=== PATIENT | female | born 1980 | race Caucasian/White ===

== ENCOUNTER 2017-05-25 12:20 | Emergency (ER) | payer OTHER ==
[~2017-05-25] VITALS: Ht 154.9 cm; Wt 61.2 kg
--- NOTE | ~2017-05-25 | US67 ---
[facility] A Service of [facility] & [facility] RADIOLOGY TEXT RESULTS PATIENT: EVARISTO ALMONTE LOCATION: [facility] : 78 UNIT #: [id number] AGE: [address]: Moy Durand MD SEX: F ORDER DR: [id number] [facility] [address] [place], [place] [address] [id number] E MR#: [id number] Acc #: [id number] NAME: EVARISTO ALMONTE : 1980 SEX: F STUDY DATE/TIME: 05/25/2017 14:25 UNIT: [facility] ROOM: STUDY DESCRIPTION: Gallbladder Attending Physician: Moy Durand M.D. Ordering Physician: Moy Durand M.D. Primary Care Physician: [facility] MEDICAL IMAGING REPORT This report is preliminary unless electronic signature is present EXAM Gallbladder sonogram HISTORY Abdominal pain for 4 days. FINDINGS Real-time examination demonstrates the liver to be of normal size, shape and echogenicity. No ductal dilatation. Common bile duct measures up to 5.5 mm. The gallbladder demonstrates no stones. There is a small amount of gallbladder sludge but no evidence of gallbladder wall thickening or pericholecystic fluid. Visualized right kidney and pancreas appear normal. No free fluid. IMPRESSION Small amount of gallbladder sludge, nonspecific but may be indicative of cholestasis. No gallstones or findings to suggest acute cholecystitis. Dictated by... Francisca Peter M.D. THIS IS AN ELECTRONICALLY VERIFIED REPORT Francisca Peter M.D. at 05/26/2017 7:36 PM Zi TD: 05/26/2017 12:11 JOB #: [id number] MEDICAL IMAGING REPORT Page 1 of 1 COPY
[~2017-05-25 12:20] MED LIST: BACTRIM DS TABL1 TA1 PO; BENTYL10 MG PO; CERTAGEN PO; CIPRO PO; DIFLUCAN PO; DOXYCYCLINE HY100 M1 PO; FLAGYL PO; FLEXERIL PO; MACROBID100 MG PO; NAPROSYN500 MG PO; NO MEDICATIONS; PERCOCET10 PO; PHENERGAN PO; PHENERGAN VC W120 M1 PO; PHENERGAN W/CO120 ML PO; PHENERGAN25 M1 DOB; PHENERGAN25 M1 PO; PREDNISONE PO; PRILOSEC2.5 MG PO; PYRIDIUM PO; VICODIN PO
[2017-05-25 13:25] LABS: BASOPHIL# 0.1 X10e3 (0-0.3); BASOPHIL% 0.7 % (0-2.5); EOSINOPHIL# 0.2 X10e3 (0-0.7); EOSINOPHIL% 1.9 % (0.0-7.0); HEMATOCRIT 36.2 % (35.0-45.0); HEMOGLOBIN 12.1 gm/dL (12.0-16.0); LYMPHOCYTE# 3.1 X10e3 (1.0-3.5); MEAN CELL VOLUME 85.6 FL (83-96); MEAN CORPUSCULAR HEMOGLOBIN 28.7 PG (28-34); MEAN CORPUSCULAR HGB CONC 33.5 g/dL (30-36); MEAN PLATELET VOLUME 7.7 FL (6.5-11.5); MONOCYTE# 0.7 X10e3 (0-1.0); MONOCYTE% 5.5 % (3.0-12.0); NEUTROPHIL# 8.3 X10e3 (1.5-7.1); NEUTROPHIL% 66.9 % (40-75); PLATELET COUNT 405 X10e3 (140-420); RED BLOOD COUNT 4.24 X10e (3.90-5.30); RED CELL DISTRIBUTION WIDTH 15.6 % (11.0-15.5); WHITE BLOOD COUNT 12.4 X10e3 (4.0-10.5)
[2017-05-25 13:28] LABS: URINE SOURCE CLEAN CATCH
[2017-05-25 13:55] LABS: DIFF IND NO
[2017-05-25 13:58] LABS: ALBUMIN SERUM 4.2 g/dL (3.5-5.0); ALKALINE PHOSPHATASE 61 U/L (32-92); ALT (SGPT) 20 U/L (10-40); AMYLASE 22 U/L (0-46); AST (SGOT) 18 U/L (10-42); BILIRUBIN,TOTAL 0.7 mg/dL (0.2-2.0); BLOOD UREA NITROGEN 9 mg/dL (9-23); CALCIUM SERUM 9.3 mg/dL (8.4-10.2); CARBON DIOXIDE 25 mmol/L (22-31); CHLORIDE 105 mmol/L (100-111); CREATININE SERUM 0.6 mg/dL (0.6-1.4); GLOM FILT RATE Estimated 115.6 mL/min (>60); GLUCOSE FASTING 104 mg/dL (70-110); LIPASE 19 U/L (22-51); POTASSIUM 4.2 mmol/L (3.5-5.1); PROTEIN TOTAL SERUM 7.4 g/dL (6.0-8.3); SODIUM 136 mmol/L (135-145)
[2017-05-25 14:00] LABS: BILIRUBIN, DIRECT <0.1 mg/dL (0.0-0.2); BILIRUBIN,INDIRECT 0.6 mg/dL (0.0-0.9)
[2017-05-25 14:14] LABS: URINE BILIRUBIN NEG (NEG); URINE BLOOD NEG (NEG); URINE GLUCOSE NORM (NORM); URINE KETONE NEG (NEG); URINE LEUKOCYTE ESTERASE NEG (NEG); URINE NITRATE NEG (NEG); URINE PROTEIN NEG (NEG); URINE UROBILINOGEN NORM (NORM)
[2017-05-25 14:35] LABS: URINE APPEARANCE CLEAR; URINE COLOR YELLOW
[2017-05-25 14:36] LABS: CULTURE INDICATED? NO
== END 2017-05-25 15:12 | disposition home or self-care (01) ==
LOC: CED 12:20
PROVIDERS: Emergency Medicine
DX: R10.11 Right upper quadrant pain (principal); R11.2 Nausea with vomiting, unspecified; Z88.0 Allergy status to penicillin
CPT/HCPCS: 36415; 76705; 80048; 80076; 81003; 82150; 83690; 84703; 85025; 96361; 96374; 96375; 99284; J1885; J2405